=== PATIENT | female | born 1940 | race Two or more races ===

== ENCOUNTER 2018-03-24 10:54 | Emergency (ER) | payer MEDICAID, OTHER ==
[2018-03-24 10:54] VITALS: BP 0/0
[2018-03-24] MEDS ORDERED: CALCIUM CHLOR(10%) 100MG/ML 10ML SYRINGE IV ONE (10:55)
[2018-03-24] MEDS ORDERED: EPINEPHrine HCL 1 MG/10 ML SYRG IV ONE (10:55)
[2018-03-24] MEDS ORDERED: SODIUM BICARBONATE 8.4% INJ 50ML SYRINGE IV ONE (10:55)
[2018-03-24] MEDS ORDERED: AMIODARONE HCL 900 MG IV ONE (11:10)
[2018-03-24] MEDS ORDERED: NOREPINEPHRINE 8 MG/250ML KIT 250 ML IV SCH (11:30)
[2018-03-24] MEDS ORDERED: AMIODARONE HCL 900 MG in DEXTROSE 500 ML IV SCH (11:36)
== END 2018-03-24 12:55 | disposition expired ==
LOC: ER 10:54 → EDBD 10:54 → ER 12:55
DX: I46.9 Cardiac arrest, cause unspecified (principal)
CPT/HCPCS: 31500; 36600; 51702; 71045; 82805; 92950; 93005; 99285; J0171; J0282; J7060; 94002